=== PATIENT | female | born 1980 | race Caucasian/White ===

== ENCOUNTER 2017-06-15 10:56 | Emergency (ER) | payer BC ==
[2017-06-15 10:57] VITALS: BP 107/69
--- NOTE | 2017-06-15 11:13 | RAD ---
EXAM: Right knee, 4 views. HISTORY: Inability to bear weight. COMPARISON: 06/28/2012. FINDINGS: Frontal, lateral, oblique and sunrise views of the right knee are obtained. There is no fracture, dislocation or subluxation. No effusion is seen. IMPRESSION: No acute osseous finding.
--- NOTE | 2017-06-15 11:53 | PHYS DOC ---
General Chief Complaint: KNEE INJURY Stated Complaint: RT KNEE PAIN Time Seen by MD: 10:58 Source: patient Exam Limitations: no limitations Problems: History of Present Illness Initial Comments Patient is a 37-year-old female who comes to the ED complaining of right knee pain. Patient states that back in January she had an injury stepping off a curb in which she felt a pop with severe pain. Symptoms resolved over a few days. Pain is located at the medial aspect of the right knee, patient states that she can't straighten or bend the knee due to severe pain. Patient holds her knee in flexion she is very dramatic and unwilling to move it. States the pain started this morning when she got out of bed with no new injury. She denies numbness tingling weakness or radiating symptoms. Patient is noted to be tachycardic on arrival. She denies taking any illicit substances she states she had a very large coffee and smokes several cigarettes immediately prior to arrival. She denies any chest pain trouble breathing and refuses workup for this at this time. Alcohol odor noted, patient states that she was drinking heavily last night but has had nothing to drink this morning. Her dramatic presentation raises the question that she could be altered, her significant other appears to have normal emotions and mental status. Onset: other Severity: severe Pain/Injury Location: right knee Method of Injury: other Modifying Factors: improves with immobilization, worse with jarring, worse with movement Past Medical History Medical History: no pertinent history Surgical History: noncontributory Social History Smoker: cigarettes Alcohol: occasionally Drugs: none Review of Systems Constitutional: denies chills, denies fever Respiratory: denies cough, denies shortness of breath Cardiovascular: denies chest pain, denies palpitations Gastrointestinal: denies nausea, denies vomiting Genitourinary: denies frequency, denies hematuria Musculoskeletal: see HPI Psychiatric/Neurological: see HPI Physical Exam General Appearance: moderate distress, thin HEENT: PERRL/EOMI, normal ENT inspection, other (very poor dentition) Neck: non-tender, supple Cardiovascular/Respiratory: normal peripheral pulses, normal breath sounds, tachycardia Back: no CVA tenderness, no vertebral tenderness Knees: left knee non-tender, bilateral knee normal inspection, left knee normal range of motion, bilateral knee no evidence of injury, right knee other ( exam very limited due to patient intolerance) Neurologic/Tendon: normal sensation, normal motor functions, other (unable to test tendons or ligaments due to patient cooperation) Psychiatric: alert, oriented x 3, other (anxious, very dramatic, exquisite tenderness expressed to light skin touch) Skin: normal color, warm/dry Orders, Labs, Meds Neurovascularly intact after knee immobilizer placed. I discussed the need to follow-up with her doctor as outpatient who may potentially decide to order MRI evaluation. I discussed signs and symptoms to monitor as well as indications for urgent return. Patient questions were answered she expressed agreement and understanding of the treatment plan. She once again refused any workup for asymptomatic sinus tachycardia. Departure Time of Disposition: 11:51 Disposition: 01 HOME, SELF-CARE Diagnosis: right knee pain Condition: STABLE Patient Instructions: Knee Immobilizer, [id number], RICE - Routine Care for Injuries, [id number] Additional Instructions: Use crutches and right knee immobilizer as needed. Nonweightbearing crutches only until follow-up with a doctor. [id number] ibuprofen for baseline discomfort. Prescription: [place] 5 mg quantity 15 Take medication with food. You will need to follow-up with a doctor for further workup as an outpatient. ED staff can give you a list of local doctors, some have walk-in appointments. Follow-up for next available evaluation. Return to ED with new or changing symptoms. DAKOTA HILL DO Jun 15, 2017 11:53
[2017-06-15] MEDS ORDERED: HYDR-971 PO (11:54)
== END 2017-06-15 12:15 | disposition home or self-care (01) ==
LOC: ER 10:56
DX: M25.561 Pain in right knee (principal); F17.210 Nicotine dependence, cigarettes, uncomplicated
CPT/HCPCS: 29505; 73564; 99284-25